=== PATIENT | male | born 1985 | race Caucasian/White ===

== ENCOUNTER 2017-10-22 18:08 | Emergency (ER) | payer OTHER ==
[~2017-10-22] VITALS: Ht 177.8 cm; Wt 79.4 kg
[2017-10-22 18:08] VITALS: BP 118/70
--- NOTE | 2017-10-22 18:15 | ED.ADGEN ---
Adult General Chief Complaint Chief Complaint " All of sudden I got conjunctivitis... I went to [place] and they sent me here..." HPI HPI Patient is a 32 year old male who presents with above hx and conjunctivitis. Intermittent only been today. No known exposures. No history of travel. Has been 10 months since he's been in [place]. Patient up-to-date with vaccinations. No history of ill contacts. No changes in vision Review of Systems Review of Systems Constitutional: Denies fever or chills [] Eyes: Conjunctiva, redness, HENT: Denies nasal congestion or sore throat [] Respiratory: Denies cough or shortness of breath [] Cardiovascular: No additional information not addressed in HPI [] GI: Denies abdominal pain, nausea, vomiting, bloody stools or diarrhea [] : Denies dysuria or hematuria [] Musculoskeletal: Denies back pain or joint pain [] Integument: Denies rash or skin lesions [] Neurologic: Denies headache, focal weakness or sensory changes [] Endocrine: Denies polyuria or polydipsia [] All other systems were reviewed and found to be within normal limits, except as documented in this note. Family History Family History Noncontributory Current Medications Current Medications Current Medications Medications (Trade) Dose Ordered Sig/Vikram Start Time Stop Time Status Last Admin Dose Admin Erythromycin (Romycin) 0.25 inch 1X ONCE 10/22/17 19:30 10/22/17 19:31 DC 10/22/17 19:21 0.25 INCH See nursing for home meds Allergies Allergies Allergies Coded Allergies Type Severity Reaction Last Updated Verified primaquine Allergy Unknown 10/22/17 Yes Physical Exam Physical Exam Constitutional: Well developed, well nourished, no acute distress, non-toxic appearance. [] HENT: Normocephalic, atraumatic, bilateral external ears normal, oropharynx moist, no oral exudates, nose normal. [] Eyes: PERRLA, EOMI, conjunctiva checked it,, no discharge. Normal visual acuity. Fundus benign. Pupils equal and reactive. No field deficits Neck: Normal range of motion, no tenderness, supple, no stridor. [] Cardiovascular:Heart rate regular rhythm, no murmur [] Lungs & Thorax: Bilateral breath sounds clear to auscultation [] Abdomen: Bowel sounds normal, soft, no tenderness, no masses, no pulsatile masses. [] Skin: Warm, dry, no erythema, no rash. [] Back: No tenderness, no CVA tenderness. [] Extremities: No tenderness, no cyanosis, no clubbing, ROM intact, no edema. [] Neurologic: Alert and oriented X 3, normal motor function, normal sensory function, no focal deficits noted. [] Psychologic: Affect normal, judgement normal, mood normal. [] Current Patient Data Vital Signs Vital Signs Date Time Temp Pulse Resp B/P (MAP) Pulse Ox O2 Delivery O2 Flow Rate FiO2 10/22/17 18:08 97.9 56 16 98 Room Air EKG EKG [] Radiology/Procedures Radiology/Procedures [] Course & Med Decision Making Course & Med Decision Making Pertinent Labs and Imaging studies reviewed. (See chart for details). Use a very small amount of erythromycin ointment 4 times a day. Follow-up primary care. Frequent handwashing [] Final Impression Final Impression 1. Conjunctivitis[]- Viral Problems: Dragon Disclaimer Dragon Disclaimer This electronic medical record was generated, in whole or in part, using a voice recognition dictation system. ANIL MIGUEL MD Oct 22, 2017 18:15
[2017-10-22] MEDS ORDERED: BACI3.5O4 OP (18:51)
[2017-10-22] MEDS ORDERED: ERYTHROMYCIN 0.5% OPHTH OINTMENT 1GM TUBE. OU ONE (19:30)
== END 2017-10-22 19:03 | disposition home or self-care (01) ==
LOC: ER 18:08
DX: B30.9 Viral conjunctivitis, unspecified (principal); Z88.8 Allergy status to other drugs, medicaments and biological substances
CPT/HCPCS: 99283